=== PATIENT | male | born 1975 | race Caucasian/White ===

== ENCOUNTER → 2019-08-21 | Outpatient (CLI) | payer OTHER ==
--- NOTE | 2019-08-21 22:49 | ECHO ---
DATE OF PROCEDURE: 08/21/2019 Date of : 1975 Age: 44 REFERRING PHYSICIAN: Dr. Talha Jaime PATIENT LOCATION: Outpatient. REASON FOR ECHOCARDIOGRAM: Abnormal EKGs. 2D MEASUREMENTS: IVS: 1.1 cm LV: 4.2 cm LVPW: 0.9 cm LA: 3.4 cm Aorta: 2.9 cm DOPPLER MEASUREMENTS: Peak velocity across the aortic valve: 1.5 m/s Peak velocity across the LVOT: 1.1 m/s Mitral E: 1.0, Mitral A: 0.69, with a ratio of 1.5. Maximum tricuspid valve velocity: 2.6 m/s 2D COMMENTS: 1. Normal left ventricular size, wall thickness, and normal global left ventricular systolic function. The estimated left ventricular systolic ejection fraction is 60-65%. 2. Normal left atrium. Normal right atrium and right ventricle. 3. The atrial septum appeared to be normal without evidence of defect or shunt. 4. Normal aortic root. 5. Trace pericardial effusion noted, no evidence of cardiac tamponade. 6. Mildly calcified aortic valve with normal leaflet excursion. No mitral valve, tricuspid valve, and pulmonic valve. The proximal pulmonary artery branches also appeared to be normal in size. 7. The inferior vena cava was not well visualized. DOPPLER: It detects trace aortic regurgitation, trace mitral regurgitation, and mild tricuspid regurgitation. The calculated pulmonary artery systolic pressure varies between 30-40 mmHg. Assessment of the left ventricular diastolic function appeared to be normal. IMPRESSION 1. Normal global left ventricular systolic and diastolic function. 2. Aortic valve sclerosis with trace aortic regurgitation but no aortic stenosis. 3. Trace mitral regurgitation. 4. Mild tricuspid regurgitation with mild pulmonary hypertension. 5. Trace pericardial effusion noted, no evidence of cardiac tamponade. 6. Global longitudinal strain/GLS was normal at 18.4%.
== END ==
LOC: M CARPUL 13:02
PROVIDERS: ATTEND Internal Medicine
DX: R94.31 Abnormal electrocardiogram [ECG] [EKG] (principal)

== ENCOUNTER → 2023-03-27 | Outpatient (REF) | payer MEDICARE | LOC: M LAB REF 16:11 | PROVIDERS: ATTEND Surgery | DX: D48.5 Neoplasm of uncertain behavior of skin (principal) ==